=== PATIENT | male | born 1985 | race Caucasian/White ===

== ENCOUNTER 2017-12-03 19:12 | Emergency (ER) | payer MEDICAID ==
[~2017-12-03] VITALS: Ht 180.3 cm; Wt 82.4 kg
[2017-12-03] MEDS ORDERED: DIPH,PERTUSS(ACELL),TET VAC/PF 0.5 ML IM-VACC ONE ×2 (19:30→19:43)
[2017-12-03] MEDS ORDERED: LIDOCAINE-MPF 2% ,5ML ONE (20:05)
[2017-12-03] MEDS ORDERED: LIDOCAINE 2%, 20ML SQ ONE (20:30)
[2017-12-03] MEDS ORDERED: BACITRACIN ZINC OINT 500U/GM, 0.9 GM ONE (20:40)
== END 2017-12-03 21:00 | disposition home or self-care (01) ==
LOC: ED 19:37
DX: S61.212A Laceration without foreign body of right middle finger without damage to nail, initial encounter (principal); F17.200 Nicotine dependence, unspecified, uncomplicated; W45.8XXA Other foreign body or object entering through skin, initial encounter; Y93.89 Activity, other specified; Y99.0 Civilian activity done for income or pay; Y92.69 Other specified industrial and construction area as the place of occurrence of the external cause
CPT/HCPCS: 12041; 90471; 90715